=== PATIENT | male | born 1985 | race Caucasian/White ===

== ENCOUNTER 2016-10-01 15:03 | Emergency (ER) | payer OTHER ==
[2016-10-01 15:17] VITALS: BP 118/74
--- NOTE | 2016-10-01 16:17 | UC ---
Hand/Wrist HPI - HPI Summary HPI Summary: ONE MONTH AGO HAD SWELLING AND REDNESS OF RIGHT MIDDLE FINGER. NO DRAINAGE AT THAT TIME, BUT GIVEN ANTIBIOTICS. RESOLVED SOMEWHAT WITH ABX. HOWEVER, LAST TWO DAYS, FINGER REDNESS, SWELLING AND TENDERNESS HAVE RETURNED. NO FEVER. NO DRAINAGE. - History Of Current Complaint Chief Complaint: UCUpperExtremity Stated Complaint: FINGER INFECTION Time Seen by Provider: 10/01/16 15:29 Hx Obtained From: Patient Onset/Duration: Gradual Onset, Lasting Days, Still Present Severity Initially: Mild Severity Currently: Moderate Character Of Pain: Dull Alleviating: Nothing Associated Signs And Symptoms: Positive: Swelling, Redness Related History: Dominant Hand Right - Allergies/Home Medications Allergies/Adverse Reactions: Allergies Allergy/AdvReac Type Severity Reaction Status Date / Time No Known Allergies Allergy Verified 10/01/16 15:18 Home Medications: Home Medications ValACYclovir (*) [Valtrex 500 mg (*)] 10/01/16 [History] PMH/Surg Hx/FS Hx/Imm Hx Previously Healthy: Yes - Surgical History Surgical History: None - Family History Known Family History: Negative: Blood Disorder - Social History Occupation: Employed Full-time Lives: With Family Alcohol Use: Occasionally Substance Use Type: None Smoking Status (MU): Never Smoked Tobacco Review of Systems Constitutional: Negative Skin: Other - REDNESS RIGHT 3RD FINGER Eyes: Negative ENT: Negative Respiratory: Negative Cardiovascular: Negative Gastrointestinal: Negative Genitourinary: Negative Motor: Negative Neurovascular: Negative Musculoskeletal: Edema - RIGHT 3RD FINGER AT ULNAR ASPECT OF NAIL CUTICLE, Myalgia Neurological: Negative Psychological: Negative All Other Systems Reviewed And Are Negative: Yes Physical Exam Triage Information Reviewed: Yes Appearance: Well-Appearing, No Pain Distress, Well-Nourished Vital Signs: Initial Vital Signs Temp 98.0 F 10/01/16 15:13 Pulse 68 10/01/16 15:13 Resp 12 10/01/16 15:13 BP 118/74 10/01/16 15:13 Pulse Ox 99 10/01/16 15:13 Vital Signs Reviewed: Yes Eye Exam: Normal ENT Exam: Normal ENT: Positive: Normal ENT inspection, Hearing grossly normal, TMs normal Dental Exam: Normal Neck exam: Normal Neck: Positive: Supple Respiratory Exam: Normal Respiratory: Positive: Chest non-tender, Lungs clear, Normal breath sounds, No respiratory distress Cardiovascular Exam: Normal Cardiovascular: Positive: RRR, No Murmur, Pulses Normal Abdominal Exam: Normal Musculoskeletal: Positive: Strength Intact, ROM Intact, Edema @ - RIGHT 3RD FINGER AT ULNAR ASPECT OF NAIL CUTICLE Neurological Exam: Normal Psychological Exam: Normal Skin: Positive: Other - PARONYCHIA RIGHT 3RD FINGER AT ULNAR ASPECT OF NAIL CUTICLE Hand/Wrist Course/Dx - Differential Dx/Diagnosis Differential Diagnosis/HQI/PQRI: Cellulitis, Paronychia, Sprain, Strain Provider Diagnoses: PARONYCHIA RIGHT THIRD FINGER Discharge - Discharge Plan Condition: Stable Disposition: HOME Prescriptions: Amoxicillin/Clavulanate TAB* [Augmentin TAB 875*] 875 mg PO BID #20 tab Patient Education Materials: Paronychia (ED) Referrals: [facility] [place] [facility] [Outside] Images Hands: 1 - PARONYCHIA RIGHT 3RD FINGER AT ULNAR ASPECT OF NAIL CUTICLE
== END 2016-10-01 16:09 | disposition home or self-care (01) ==
LOC: UCEAST 15:03
DX: L03.011 Cellulitis of right finger (principal)
CPT/HCPCS: 10060; 87070; 87077; 87205; 99202; G0463